=== PATIENT | female | born 1985 | race Caucasian/White ===

== ENCOUNTER 2019-07-05 16:00 | Outpatient (RCR) | payer BC | END 2019-07-05 16:30 | disposition still patient (30) | LOC: PT 16:00 | DX: M25.562 Pain in left knee (principal) ==

== ENCOUNTER 2024-07-06 20:13 | Emergency (ER) | payer BC ==
[~2024-07-06] VITALS: Ht 157.5 cm; Wt 85.0 kg
[2024-07-06] MEDS ORDERED: VITAMIN D21250 MCG (20:22)
[2024-07-06] MEDS ORDERED: FLUOXETINE HCL20 MG PO (20:22)
[2024-07-06 21:03] VITALS: BP 128/71
== END 2024-07-06 21:05 | disposition home or self-care (01) ==
LOC: ED 20:13
DX: S61.412A Laceration without foreign body of left hand, initial encounter (principal); W26.0XXA Contact with knife, initial encounter